=== PATIENT | male | born 1990 | race Caucasian/White ===

== ENCOUNTER 2018-05-08 05:15 | Emergency (ER) | payer OTHER ==
[~2018-05-08] VITALS: Ht 190.5 cm; Wt 145.2 kg
[2018-05-08] MEDS ORDERED: NOHOMEMEDICATIONS (05:26)
[2018-05-08 05:33] LABS: ABSOLUTE EOSINOPHILS 0.1 thou/uL (0.0-0.7); ABSOLUTE MONOCYTES 0.7 thou/uL (0.0-1.2); ABSOLUTE NEUTROPHILS 5.5 thou/uL (1.6-8.1); BASOPHILS 0.5 %; EOSINOPHILS 0.6 %; HEMOGLOBIN 15.6 gm/dL (14.0-18.0); LYMPHOCYTES 32.3 %; MCH 29.6 pg (26.0-34.0); MCHC 34.6 g/dL (28.0-37.0); MCV 85.5 fL (80.0-100.0); MONOCYTES 7.3 %; MPV 7.9 fl. (7.2-11.1); NUCLEATED RBCS 0 /100WBC; PLATELET COUNT* 274 thou/uL (150-400); POLYS 59.3 %; RBC 5.27 mil/uL (4.50-6.00); WBC 9.3 thou/uL (4.0-11.0)
[2018-05-08 05:46] LABS: ANION GAP 10 mmol/L (7-16); BUN 11 mg/dL (7-18); CALCIUM 9.1 mg/dL (8.5-10.1); CHLORIDE 103 mmol/L (98-107); CO2 26 mmol/L (21-32); CREATININE 1.1 mg/dL (0.6-1.3); GLUCOSE 107 mg/dL (70-99); POTASSIUM 3.9 mmol/L (3.5-5.1); SODIUM 139 mmol/L (136-145)
[2018-05-08 05:50] LABS: APTT 27.5 Seconds (25.0-31.3); PROTIME 10.1 Seconds (9.20-11.50)
[2018-05-08 06:06] LABS: ALBUMIN 4.3 g/dL (3.4-5.0); ALKALINE PHOSPHATASE 84 U/L (46-116); CK-MB MASS 2.3 ng/mL (<0.5-3.6); LIPASE 179 U/L (73-393); MAGNESIUM 1.9 mg/dL (1.8-2.4); NT-PRO BRAIN NAT PEPTIDE 20 pg/mL (<300); SGOT 22 U/L (15-37); SGPT 49 U/L (30-65); TOTAL BILIRUBIN 0.5 mg/dL (<0.1-1.0); TOTAL PROTEIN 8.3 g/dL (6.4-8.2); TROPONIN-I LEVEL <0.06 ng/mL (<0.06)
[2018-05-08 06:22] VITALS: BP 124/62
--- NOTE | 2018-05-08 13:01 | EKG ---
[place] [address] ELECTROCARDIOGRAM REPORT Name: CHAGOFRANCESCACHUCK ETIENNE Room: [facility]#: [id number] Admission: 05/08/18 Attend Phys: Discharge: 05/08/18 Date of : 89 Report #: [id number] THIS REPORT FOR: //name// [facility] ED Test Date: 2018-05-08 Test Time: 05:20:47 Pat Name: CHUCK DÍAZ Department: Room: Gender: M Endoscopy Registered Nurse: : 1990 Requested By: Erick Carter Order Number: [id number] MD: Fabrice Puente Measurements Intervals [place] Rate: 70 P: 62 [place]: 131 QRS: 48 QRSD: 106 T: 7 QT: 382 QTc: 413 Interpretive Statements Sinus rhythm Baseline wander in lead(s) V2 No previous ECG available for comparison Electronically Signed On 05-08-2018 13:01:20 CDT by Fabrice Puente [email or web address] <ELECTRONICALLY SIGNED> By: Fabrice Puente MD, [facility] 05/08/18 1301 0520 0520 Fabrice Puente MD, FACC /EPI
== END 2018-05-08 06:23 | disposition home or self-care (01) ==
LOC: M.ERS 05:15
PROVIDERS: Family Medicine
DX: R00.2 Palpitations (principal); Z98.52 Vasectomy status